=== PATIENT | female | born 1990 | race Hispanic/Latino ===

== ENCOUNTER → 2025-01-02 | Day surgery (SDC) | payer BC ==
[2025-01-01 09:15] LABS: BASOPHILS % 0.3 % (0.0-1.0); EOSINOPHILS % 1.2 % (0.0-6.0); LYMPHOCYTES % 30.6 % (18.0-39.1); MONOCYTES % 6.1 % (4.4-11.3); NEUTROPHILS % 61.6 % (38.7-80.0); RED CELL DISTRIBUTION WIDTH 17.6 % (11.7-14.4)
[~2025-01-02] MED LIST: ACETAMINOPHEN 1000 MG/100 ML 100 ML IV ONE; DEXAMETHASONE SOD PHOS INJ 4 MG/ML SDV ONE; FENTANYL CITRATE/PF 100MCG/2 ML INJ ONE; FEROSUL325 MG PO; LACTATED RINGER'S 1,000 ML ONE; LIDOCAINE HCL 2% LOCAL INJ 5 ML SDV VIAL INJ ONE; MIDAZOLAM HCL 2 MG/2 ML VIAL ONE; MULTI-VITAMIN1 EACH PO; ONDANSETRON HCL INJ 2MG/ML 2ML 2 MG/ML VIAL ONE; PROPOFOL IV EMULSION 10 MG/ML 20 ML VIAL ONE; SEVOFLURANE INHAL SOLN 250 ML PEN BTL ONE; TRANEXAMIC ACI650 MG
[2025-01-02 15:12] VITALS: TEMP 97.8
[2025-01-02 16:00] VITALS: BP 137/86; PULSE 61; RESP 16; O2SAT 97
== END | disposition home or self-care (01) ==
LOC: OR 11:51
PROVIDERS: ATTEND Obstetrics & Gynecology
DX: N84.0 Polyp of corpus uteri (principal); D64.9 Anemia, unspecified; Z01.812 Encounter for preprocedural laboratory examination
CPT/HCPCS: 36415; 58558; 84702; 85025; 88305; J0131; J1100; J2003; J2250; J2405; J2704; J3010; J7121